=== PATIENT | male | born 1950 ===

== ENCOUNTER 2019-01-25 17:47 | Outpatient (REF) | payer MEDICAID, SELFPAY ==
[2019-01-25 19:58] LABS: HCT 34.5 % (40.0-50.0); HGB 12.7 g/dL (13.5-17.5); Mean Corp. HGB Concentration 36.8 g/dL (32.0-36.0); Mean Corpuscular Hemoglobin 31.8 pg (27.0-33.0); Mean Corpuscular Volume 86.3 fL (80-95); Mean Platelet Volume 9.9 fL (8.0-11.0); Platelet Count 299 x1000/uL (130-400); RBC Distribution Width 20.2 % (11.8-14.1); White Blood Cell Count 9.07 k/cumm (4.4-10.8)
[2019-01-25 20:21] LABS: ALT 236 U/L (12-78); Albumin 2.2 g/dL (3.4-5.0); Amylase 21 U/L (25-115); Anion Gap 12.2 mmol/L (3-11); BUN 37 mg/dL (7-18); CO2 23.8 mmol/L (21.0-32.0); CREATININE 1.51 mg/dL (0.70-1.30); Calcium 10.1 mg/dL (8.5-10.1); Chloride 91 mmol/L (98-107); Estimated GFR 46.32 (mL/min/1.73m2); Glucose 95 mg/dL (70-100); Lipase 74 U/L (73-393); Potassium 3.7 mmol/L (3.5-5.1); Sodium 127 mmol/L (136-145)
[2019-01-25 20:32] LABS: Alkaline Phosphatase 1864 U/L (46-116); Bilirubin, Total 31.4 mg/dL (0.2-1.0)
[2019-01-25 20:42] LABS: AST 286 U/L (15-37); Total Protein 5.2 g/dL (6.4-8.2)
[2019-01-25 21:07] LABS: Folate 7.8 ng/mL (8.6-20.0)
[2019-01-26 17:06] LABS: FREE T4 1.41 ng/dL (0.76-1.46); TSH 1.25 uIU/mL (0.358-3.74)
[2019-01-27 10:45] LABS: Hepatitis B Surface Ag Negative (NEGAT)
[2019-01-27 11:00] LABS: Hepatitis C Ab w Rflx HCV PCR Negative (NEGAT)
[2019-01-27 11:29] LABS: HIV-1/2 Ag & Ab Screen Negative (NEGAT)
== END 2019-01-25 18:07 ==
LOC: NCHCN 17:47
PROVIDERS: Visit Provider Internal Medicine
DX: F10.20 Alcohol dependence, uncomplicated (principal); R63.4 Abnormal weight loss; R17 Unspecified jaundice; Z11.4 Encounter for screening for human immunodeficiency virus [HIV]; Z11.59 Encounter for screening for other viral diseases; Z01.84 Encounter for antibody response examination
CPT/HCPCS: 80053; 83690; 85027; 86803; 87340; 87389; 82150; 82746; 84439; 84443